=== PATIENT | male | born 1945 | race Caucasian/White ===

== ENCOUNTER 2023-05-19 10:58 | Outpatient (CLI) | payer OTHER, SELFPAY ==
--- NOTE | 2023-05-19 11:15 | CRLHL7_ITS ---
For Patients: As a result of the Century Cures Act, medical imaging exams and procedure reports are released immediately into your electronic medical record. You may view this report before your referring provider. If you have questions, please contact your health care provider. INDICATION: IDIOPATHIC PULMONARY FIBROSIS, Dyspnea TECHNIQUE: Chest 2 views COMPARISON: CT chest 03/16/2011, 06/19/2021 chest x-ray 03/16/2011 FINDINGS: Thickening of the interlobular septa in a peripheral distribution bilaterally, similar to the most recent CT chest. No pleural effusion or acute infiltrate. No compression fracture. Incidental gas bubble within stomach noted. IMPRESSION: Pulmonary fibrosis, similar to the 06/19/2021 CT scan. Dictated by Dragan Dye MD @ 05/19/2023 11:42:01 AM (Electronically Signed)
--- NOTE | 2023-05-19 11:15 | CRLHL7_ITS ---
For Patients: As a result of the Century Cures Act, medical imaging exams and procedure reports are released immediately into your electronic medical record. You may view this report before your referring provider. If you have questions, please contact your health care provider. Indication: Pulmonary fibrosis, dyspnea Technique: Fluoroscopic sniff test. Fluoroscopic time 21 seconds. IMPRESSION: Normal motion of the hemidiaphragms. No paradoxical movement. The hemidiaphragm movement is somewhat sluggish related to the underlying pulmonary fibrosis. Incidental gastric bubble noted near the GE junction. Dictated by Dragan Dye MD @ 05/19/2023 11:45:57 AM (Electronically Signed)
== END 2023-05-19 10:59 | disposition home or self-care (01) ==
LOC: RAD 11:03
PROVIDERS: PCP Surgery; Visit Provider Internal Medicine Pulmonary Disease
DX: J84.112 Idiopathic pulmonary fibrosis (principal); R94.2 Abnormal results of pulmonary function studies; R06.00 Dyspnea, unspecified
CPT/HCPCS: 71046; 76000

== ENCOUNTER 2024-04-20 13:12 | Outpatient (REF) | payer OTHER, SELFPAY ==
[2024-04-20 13:52] LABS: Albumin* 4.5 g/dL (3.3-5.0)
[2024-04-20 13:55] LABS: Alanine Aminotransferase* 21 U/L (4-50); Alkaline Phosphatase* 53 U/L (40-150); Aspartate Amino Transferase* 28 U/L (12-35); Bilirubin Direct* 0.4 mg/dL (0.0-0.5); Bilirubin Total* 0.9 mg/dL (0.1-1.5); Total Protein* 7.3 g/dL (6.0-8.3)
== END 2024-04-20 13:13 | disposition home or self-care (01) ==
LOC: NPINS 13:12
PROVIDERS: PCP Surgery; Visit Provider Internal Medicine
DX: J84.10 Pulmonary fibrosis, unspecified (principal); J84.112 Idiopathic pulmonary fibrosis
CPT/HCPCS: 80076

== ENCOUNTER 2024-11-14 19:19 | Emergency (ER) | payer OTHER, SELFPAY ==
--- OUTSIDE RECORDS SUMMARY | 2024-11-14 19:22 | XMS_ITS | Continuity of Care Document ---
Author Organization [facility] Address [address] [place] [address] Phone Care Team Providers Care Civil Litigation Attorney Name Role Phone Sweta Hdz MD Unavailable Unavailable Allergies, Adverse Reactions, Alerts Substance Reaction Status Criticality No Known Allergies Active No Inform ation Medications Medication Instructions Dosage Effective Dates (start - stop) Status Comments Eliquis 5 mg tablet take 1 tablet by ora l route 2 times every day 5 MG - Active atorvastatin 10 mg tablet take 1 tablet by oral route every day 10 MG - Active tamsulosin 0.4 mg capsule take 1 capsule by oral route every day 1/2 hour following the same meal each day 0.4 MG - Active omeprazole 20 mg capsule,delayed release take 1 capsule by oral route every day before a meal 20 MG - Active tadalafil 5 mg tablet 1 every 3 weeks - Ac tive Procedures Procedure Date Office/Outpatient Visit, [facility] Routine Venipuncture Specimen Handling Assay Of Ck (Cpk) Dna Antibody, Single Strand Dna Antibody, [place] Nuclear Antigen Antibodies Antinuclear Antibodies Advance Directives Directive Yes / No Effective Date File Name No Information Encounters Encounter Description Practice Location Reason(s) For Visit Diagnoses Date Provider Providers Copied on Encounter [facility], [address], [place], [address], tel:[phone] [facility] , No Information [address] [facility] [address], [place], [address], [place]. tel:[phone] Office/Outpa tient Visit, [facility], [address], [place], [address], [place] tel:[phone] [facility] , Abnormal Lab Study (chief complaint) Raised antibody titerIdiopat hic pulmonary fibrosis 1 [address] [facility] [address], [place], [address], [place]. tel:[phone] Consulting Provider: Penny Luu, [facility] [address], [place], [address]. tel:[phone] ng Provider: Sweta Jones, [facility] [address], [place], [address]. tel:[phone] [facility], [address], [place], [address], [place] tel:[phone] [facility] , No Information 1 [address] [facility] [address], [place], [address], [place]. tel:[phone] Family History Family Member Type Diagnosis Age At Onset Brother Problem Factor V Leiden deficiency Son Problem Factor V Leiden deficiency Immunizations Vaccine Date Status Comments COVID-19 Moderna administered Source: Oth er Provider COVID-19 Moderna administered Source: Ot er Provider Payers Payer name Insurance type Covered green party ID Authoriza tion(s) [employer] CI [id number] Social History Type Description Quantity Date Captured Comments Sex Male Smoking Status No Information Chief Complaint And Reason For Visit No Information Reason For Referral Reason For Referral No Information History Of Present Illness Encounter Date Complaint History Of Prese nt Illness Abnormal Lab Study Functional Status Date Functional Assessmen t No Information Instructions Date Instruction Additional Infor mation No Information Assessments Type Assessment Date No Information Patient Care Teams Name Effective Dates (start - stop) Status Members No Information
[2024-11-14 19:29] VITALS: BP 148/64; PULSE 96; RESP 20; TEMP 36.8; O2SAT 98; BMI 29.0
--- NOTE | 2024-11-14 19:48 | CRLHL7_ITS ---
For Patients: As a result of the Century Cures Act, medical imaging exams and procedure reports are released immediately into your electronic medical record. You may view this report before your referring provider. If you have questions, please contact your health care provider. INDICATION: Trauma. TECHNIQUE: CT cervical spine without contrast. COMPARISON: None. FINDINGS: No acute fracture or suspicious osseous lesion. The cervical vertebral bodies maintain their normal heights with reversal of the cervical lordosis. There is mild anterolisthesis at C3-C4 and C4-C5 and mild retrolisthesis at C5-C6. Multilevel spondylosis is noted with endplate osteophyte formation most prominent at C4-C6. Multilevel degenerative disc disease with multifocal disc space height loss and multilevel facet arthropathy. Paraspinal soft tissues demonstrate no acute abnormality. There is a nonspecific superficial soft tissue presumed cystic lesion at the posterior midline upper neck at the level of C2 measuring up to 1.3 cm. IMPRESSION: 1. No acute cervical spine abnormality. 2. Benign-appearing superficial soft tissue nodule at the midline upper neck posteriorly at the level of C2 measuring up to 1.3 cm. Clinical correlation recommended. Please note that all CT scans at this facility use dose modulation, iterative reconstruction, and/or weight-based dosing when appropriate to reduce radiation dose to as low as reasonably achievable. Dictated by Tony Correa MD @ 11/14/2024 9:28:53 PM (Electronically Signed)
--- NOTE | 2024-11-14 19:48 | CRLHL7_ITS ---
For Patients: As a result of the Century Cures Act, medical imaging exams and procedure reports are released immediately into your electronic medical record. You may view this report before your referring provider. If you have questions, please contact your health care provider. INDICATION: Trauma. TECHNIQUE: CT chest without contrast. COMPARISON: CT chest 06/19/2021. FINDINGS: Lungs and pleura: Fibrotic changes grossly stable when compared to the previous exam. No focal consolidation. No pleural effusion or pneumothorax. No suspicious nodule or mass. Heart and vasculature: No cardiomegaly or pericardial effusion. No thoracic aortic aneurysm. Main pulmonary artery normal in caliber. Lymph nodes/mediastinum: No suspicious lymphadenopathy. Chest wall: No suspicious chest wall mass or fluid collection. Upper abdomen: No acute abnormality. Bones: No acute abnormality. IMPRESSION: No acute intrathoracic or osseous abnormality. No significant change when compared to previous CT of the chest. Please note that all CT scans at this facility use dose modulation, iterative reconstruction, and/or weight-based dosing when appropriate to reduce radiation dose to as low as reasonably achievable. Dictated by Tony Correa MD @ 11/14/2024 9:33:56 PM (Electronically Signed)
--- NOTE | 2024-11-14 19:55 | ED.FALL ---
HPI - Fall General Date Seen: 11/14/24 Chief Complaint: Fall/Minor Trauma Stated Complaint: fell hit head on corner and sliced head Time Seen by Provider: 11/14/24 19:39 Source: patient Mode of arrival: ambulatory Limitations: no limitations History of Present Illness HPI Narrative: Patient is a 79-year-old male presenting to the emergency department after a fall. He is on Eliquis. He states he tripped and fell hitting his head against a staircase. Hit the top of his head right at the border were his scalp and forehead are. Denies any of the injuries. Denies fevers, chills, chest pain, shortness of breath, headache, lightheadedness, dizziness, weakness, numbness, vision changes, hearing changes. States he only came in because of the blood thinners. Denies any other concerns at this time. States he feels perfectly normal. Related Data Home Medications ?Medication ?Instructions ?Recorded ?Confirmed apixaban 5 mg tablet (Eliquis) 5 mg PO BID 11/14/24 11/14/24 atorvastatin 20 mg tablet 20 mg PO DAILY 11/14/24 11/14/24 atorvastatin 40 mg tablet 40 mg PO DAILY 11/14/24 11/14/24 hydrochlorothiazide 12.5 mg tablet 12.5 mg PO DAILY 11/14/24 11/14/24 losartan 50 mg tablet 50 mg PO BID 11/14/24 11/14/24 nintedanib 150 mg capsule (Ofev) PO 11/14/24 scopolamine base 1 mg over 3 days 1 patch topical Q3D PRN vertigo 11/14/24 11/14/24 transdermal patch tamsulosin 0.4 mg capsule mg PO DAILY 11/14/24 valacyclovir 1 gram tablet 1,000 mg PO BID 11/14/24 11/14/24 Allergies Allergy/AdvReac Type Severity Reaction Status Date / Time mold Allergy Verified 11/14/24 19:26 venom-wasp Allergy Verified 11/14/24 19:26 Review of Systems Status of ROS: Reports: 10 or more systems reviewed and unremarkable except as noted in History and below [facility] Social History Smoking Status: Never smoker Do you use any of these nicotine containing products: None Second hand tobacco smoke exposure: No How often do you have a drink containing alcohol: never How often do you have six or more drinks on one occasion: Never AUDIT-C Alcohol total score: 0 Non-prescribed substance use: denies use service: No Exam Narrative: Exam Narrative: Const: Well-nourished, Well-developed, in no distress Eyes: PERRL, no conjunctival injection, and symmetrical lids HENT: Atraumatic external nose and ears. Moist mucous membranes. 2 cm laceration to top of his forehead just into the hairline Neck: Symmetric, trachea midline, No thyromegaly. No midline cervical tenderness CVS: RRR, No murmurs or gallops. Peripheral pulses 2+ and equal in all extremities RESP: Unlabored respiratory effort. Clear to auscultation bilaterally. GI: Nontender/Nondistended, No rebound or guarding. MSK:Extremities w/o deformity, Normal Active ROM Skin: Warm, Dry. No rashes or lesions. Neuro: Normal Muscle tone, No focal neurological deficits. Psych: Awake, Alert, & Oriented x3. Appropriate mood and affect. Const: Vital Signs, click to edit/add: Vital Signs - 24 hr 11/14/24 19:29 Temperature 98.2 F Pulse Rate [Pulse Oximeter] 96 Respiratory Rate 20 Blood Pressure [Ri ght Upper Arm] 148/64 H Pulse Oximetry 98 Oxygen Delivery Me thod Room Air Course Vital Signs Vital signs: Initial Vital Signs Temperature 98.2 F 11/14/24 19:29 Temperature Source Temporal Artery Scan 11/14/24 19:29 Pulse Rate 96 11/14/24 19:29 Respiratory Rate 20 11/14/24 19:29 Blood Pressure 148/64 H 11/14/24 19:29 Blood Pressure Mean 92 11/14/24 19:29 Pulse Oximetry 98 11/14/24 19:29 Oxygen Delivery Method Room Air 11/14/24 19:29 Vital Signs Temperature 98.2 F 11/14/24 19:29 Pulse Rate 96 11/14/24 19:29 Respiratory Rate 20 11/14/24 19:29 Blood Pressure 148/64 H 11/14/24 19:29 Pulse Oximetry 98 11/14/24 19:29 Oxygen Delivery Method Room Air 11/14/24 19:29 Temperature 98.2 F 11/14/24 19:29 Pulse Rate 96 11/14/24 19:29 Respiratory Rate 20 11/14/24 19:29 Blood Pressure 148/64 H 11/14/24 19:29 Pulse Oximetry 98 11/14/24 19:29 Oxygen Delivery Method Room Air 11/14/24 19:29 MDM - Fall MDM Narrative Medical decision making narrative: Patient is a 79-year-old male presenting to the emergency department after a fall. Did not lose consciousness. Is having no neurological symptoms at this time. Will do a CT scan of his head and cervical spine. Do not believe any other imaging is necessary. Of note a chest CT was ordered by accident. This chest CT was not needed. CT scans all returned the reviewed by myself and the radiologist showing no acute concerning abnormalities. He is feeling well at this time. The laceration to his forehead was closed using Dermabond. Was about 2 cm in length. Antibiotics are not necessary. He will be discharged Discharge Plan Discharge Clinical Impression: Laceration Patient Disposition: Home, Self-Care Condition: Stable Instructions: Head Injury (ED) Additional Instructions: The Dermabond should fall out in the next week or 2. Do not rub the area because the Dermabond will fall too soon then and the wound would not close appropriately. Topical antibiotics will dissolve the glue too fast. Do not use topical antibiotic. Prescriptions: No Action losartan 50 mg tablet 50 mg PO BID atorvastatin 40 mg tablet 40 mg PO DAILY atorvastatin 20 mg tablet 20 mg PO DAILY valacyclovir 1 gram tablet 1,000 mg PO BID tamsulosin 0.4 mg capsule PO DAILY scopolamine base 1 mg over 3 days patch 3 day 1 patch topical Q3D PRN (Reason: vertigo) hydrochlorothiazide 12.5 mg tablet 12.5 mg PO DAILY Eliquis 5 mg tablet 5 mg PO BID Ofev 150 mg capsule PO Follow Up/Referrals: Jose J Holland MD [Primary Care Provider] - [facility]one [facility] Procedures Laceration Forehead: Name of person performing procedure: Jose J Taveras Site: scalp (Right at the frontal hairline) Size (cm): 2 Description: linear Depth: simple, single layer Pre-repair: wound explored, irrigated extensively and deep structures intact Skin layer closed with: other (Dermabond)
--- OUTSIDE RECORDS SUMMARY | 2024-11-14 20:33 | XMS_ITS | Continuity of Care Document ---
Author Organization [facility] Address [address] [place] [address] Phone Care Team Providers Care Seam Checker Name Role Phone Sweta Hdz MD Unavailable [...] Ac tive Procedures Procedure Date Office/Outpatient Visit, [facility] Routine Venipuncture Specimen Handling Assay Of Ck (Cpk) Dna Antibody, Single Strand Dna Antibody, [place] Nuclear Antigen Antibodies Antinuclear Antibodies Advance Directives Directive Yes / No Effective Date File Name No Information Encounters Encounter Description Practice Location Reason(s) For Visit Diagnoses Date Provider Providers Copied on Encounter [facility], [address], [place], [address], tel:[phone] [facility] , No Information 1 [address] [facility] [address], [place], [address], [place]. tel:[phone] Office/Outpa tient Visit, [facility], [address], [place], [address], [place] tel:[phone] [facility] , Abnormal Lab Study (chief complaint) Raised antibody titerIdiopat hic pulmonary fibrosis 1 [address] [facility] [address], [place], [address], [place]. tel:[phone] Consulting Provider: Penny Luu, [facility] [address], [place], [address]. tel:[phone] ng Provider: Sweta Jones, [facility] [address], [place], [address]. tel:[phone] [facility], [address], [place], [address], [place] tel:[phone] [facility] , No Information 1 [address] [facility] [address], [place], [address], [place]. tel:[phone] Family History Family Member Type Diagnosis Age At Onset Brother Problem Factor V Leiden deficiency Son Problem Factor V Leiden deficiency Immunizations Vaccine Date Status Comments COVID-19 Moderna administered Source: Oth er Provider COVID-19 Moderna administered Source: Ot er Provider Payers Payer name Insurance type Covered libertarian ID Authoriza tion(s) [employer] CI [id number] Social History Type Description Quantity Date Captured [...]
--- OUTSIDE RECORDS SUMMARY | 2024-11-14 20:33 | XMS_ITS | Clinical Summary ---
Author Organization [facility] Address [address] [place] [address] Care Team Providers [facility] Name Role Phone Jose J Holland MD Primary Care Provider [phone] Allergies Active Allergy Reactions Criticality Noted Date Comments Mold *Unknown,Runny Nose 01/07/1980 respiratory Venom-Wasp Edema 06/30/2021 Medications loperamide (IMODIUM) 2 mg capsule TAKE 2 CAPSULES BY MOUTH AFTER 1ST LOOSE STOOL AND 1 CAPSULE AFTER EACH NEXT BOWEL MOVEMENT. DO NOT EXCEED 8 CAPSULES IN 24 HOURS 06/09/20 21 Active omeprazole 20 mg tabletIndications :Idiopathic fibrosing alveolitis, subacute form (HC) Take 1 Tablet (20 mg) by mouth once daily before a meal. 90 Tablet 3 08/10/19 23 Active tadalafiL (CIALIS) 10 mg tabletIndications :Erectile dysfunction of organic origin Take 1 Tablet (10 mg) by mouth once daily if needed (Erectile dysfunction ). Take 30 minutes before sexual activity. 10 Tablet 3 08/10/19 23 Active predniSONE (DELTASONE) 10 mg tabletIndications :IPF (idiopathic pulmonary fibrosis) (HC) Take 40mg (4 tabs) daily x2 days --> 30mg (3 tabs) daily x2 days --> 20mg (2 tabs) daily x2 days --> 10mg (1 tab) daily x2 days --> stop. 20 Tablet 3 04/23/20 24 Active hydroCHLOROthiazi de 12.5 mg tabletIndications :HTN (hypertension) Take 1 Tablet (12.5 mg) by mouth once daily. 90 Tablet 3 10/02/19 25 Active losartan (COZAAR) 50 mg tabletIndications :HTN (hypertension) Take 1 Tablet (50 mg) by mouth two times daily. 180 Tablet 10/02/19 25 Active scopolamine 1 mg over 3 days (Transderm-Scop) patchIndications: H/O motion sickness Apply 1 Patch on dry, clean, hairless skin every 72 hours if needed for Vertigo. prn 24 Each 10/02/19 25 Active tamsulosin 0.4 mg capsuleIndication s:Urinary urgency Take 1 Capsule (0.4 mg) by mouth once daily after a meal. 90 Capsule 10/02/19 25 Active valACYclovir (VALTREX) 1 gram tabletIndications :HSV infection Take 1 pill twice daily at the onset of a cold sore 30 Tablet 10/02/19 25 Active atorvastatin (LIPITOR) 40 mg tabletIndications :Hyperlipidemia, unspecified hyperlipidemia type Take 1 Tablet (40 mg) by mouth at bedtime. 90 Tablet 3 10/22/19 25 Active nintedanib (Ofev) 150 mg capIndications:IP F (idiopathic pulmonary fibrosis) (HC) Take 1 Capsule (150 mg) by mouth two times daily. 90 Capsule 10/24/19 25 Active Eliquis 5 mg tabletIndications :History of pulmonary embolus (PE) TAKE 1 TABLET(5 MG) BY MOUTH TWICE DAILY 180 Tablet 3 11/07/19 25 Active nintedanib (Ofev) 150 mg capIndications:IP F (idiopathic pulmonary fibrosis) (HC) Take 1 Capsule (150 mg) by mouth two times daily. 90 Capsule 3 04/23/20 24 025 Discontinued(R eorder (E-cancel not sent)) apixaban (Eliquis) 5 mg tabletIndications :History of pulmonary embolus (PE) Take 1 Tablet (5 mg) by mouth two times daily. 180 Tablet 3 10/02/19 25 025 Discontinued atorvastatin (LIPITOR) 20 mg tabletIndications :Hyperlipidemia, unspecified hyperlipidemia type Take 1 Tablet (20 mg) by mouth at bedtime. 90 Tablet 3 10/02/19 25 025 Discontinued(* Medication adjustment) nintedanib (Ofev) 150 mg capIndications:IP F (idiopathic pulmonary fibrosis) (HC) Take 1 Capsule (150 mg) by mouth two times daily. 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 Hyperlipidemia 06/03/2009 Rhinitis, allergic 06/03/2009 Resolved Problems Problem Noted Date Diagnosed Date Resolved Date Disease due to severe acute respiratory syndrome coronavirus 2 (SARS-CoV-2) 05/27/20212 12/2024 Encounters Date Type Department Care Team Description 11/03/2024 Refill [facility] [address] [facility] [place] [address] Jose J Holland MD Refill Request (Eliquis) 11/01/2024 Orders Only [facility] Scanner 1 scan: (1-Ord) INCOMING RECORDS-LABS, [facility], 11/01/2024 10/23/2024 Telephone [facility] [place] [address] [place] [phone] Penny Luu MD Medication Management (nintedanib (Ofev) 150 mg cap) 10/22/2024 10:45 AM CDT Office Visit [facility] [place] [address] [place] [address] Penny Luu MD Follow Up (Pulmonary IPF/) 10/22/2024 Travel 10/17/2024 Travel 10/16/2024 Travel 10/11/2024 Travel 10/05/2024 Telephone [facility] [place] [address] [place] [phone] Penny Luu MD Prior Authorization (nintedanib (Ofev) 150 mg cap Approved September 10, 2024 to October 08, 2025) 10/02/2024 1:10 PM DIABETES MANAGER Office Visit [facility] [address] [facility] [address] Jose J Holland MD Medicare ANNUAL (subsequent) Visit (78 yr old male) 10/02/2024 Travel 09/29/2024 Travel 09/29/2024 Refill [facility] [address] [place] [address] Jose J Holland MD Refill Request (Tamsulosin) from Last 3 Months Immunizations Immunization Administration Dates Next Due COVID-19 VACCINE SPIKEVAX (M ODERNA 50MCG/0.5ML) 12YO+ PFS 05/04/2023 COVID-19 vaccine (Moderna 100mcg/0.5mL) PF, MDV 10/17/2020,09/19/2020 COVID-19 vaccine (Moderna 50 mcg/0.5mL) 12YO+ BIVALENT PF, MDV 04/28/2022 COVID-19 vaccine (Pfizer-Bio NTech 30mcg/0.3mL) PF, MDV 08/21/2021 Influenza A (H1N1), Inactivated 07/24/2009 Influenza, High-dose Inactivated 024,05/06/2021,04/29/2018,05/06 Influenza, High-dose Quadriv alent Inactivated 05/04/2023 Influenza, IIV3 (Age 6-35 mos) 08/11/2012,2008 Influenza, IIV3 (Age >=3 years) 05/15/2013 Influenza, IIV4 05/07/2020,06/03/2014 Influenza, IIV4 (=>6mos) MDV 05/17/2019 Influenza, Inactivated AIIV4 (Age 65+ Years) Preserv Free 04/28/2022,05/06/2021 Influenza, Whole Virus 05/12/2015 Pneumococcal Poly,23-Valent (Pneumovax) 09/28/2013 Pneumococcal conj 13-Valent (Prevnar 13) 07/18/2017 RSV, Bivalent Vaccine Recons tituted (Abrysvo 120MCG/0.5mL) 06/28/2023 Tdap 11/15/2023,07/26/2013 Yellow Fever 02/26/2004 Zoster (Shingrix-RZV, recombinant) 06/05/2019, Zoster (Zostavax-ZVL, live) 06/03/2009 Family History Medical History Relation Name Comments Pulmonary embolism Brother 1 Pulmonary embolism Brother 2 Pulmonary embolism Father Relation Name Status Comments Brother 1 Brother 2 Father Social History Tobacco Use Types Packs/Day Years Used Date Smoking Tobacco: Never Passive Smoke Exposure: Never Smokeless Tobacco: Never Tobacco Cessation:Counseling Given: Not Answered Alcohol Use Standard Drinks/Week Comments Yes 0 (1 standard drink = 0.6 oz pur e alcohol) 1 beer per day PHQ-2 Answer Date Recorded PHQ-2 TOTAL SCORE 0 10/02/2024 Social Connections Answer Date Recorded Do you often feel lonely or isolated from those around you? 0 09/29/2024 Financial Resource Strain Answer Date R ecorded Difficulty of Paying Living Expenses 3 09/29/2024 Difficulty of Paying Living Expenses Not on file 09/29/2024 Food Insecurity Answer Date Recorded Do you worry your food will run out before you are able to buy more? 1 09/29/2024 Transportation Needs Answer Date Record ed Does lack of transportation keep you from medica l appointments? 1 09/29/2024 Does lack of transportation keep you from work, meetings or getting things that you need? 1 09/29/2024 Housing Stability Answer Date Recorded What is your housing situation today? 1 09/29/2024 Utilities Answer Date Recorded Do you have trouble paying f or utilities (for example, heat, electricity, water, phone)? 1 09/29/2024 Sex and Gender Information Value Date Recorded Sex Assigned at Male 09/02/2021 4:28 PM DIABETES MANAGER Legal Sex Male 5:27 AM DIABETES MANAGER Gender Identity Male 09/02/2021 4:28 PM DIABETES MANAGER Sexual Orientation Straight 09/02/2021 4: 28 PM DIABETES MANAGER Obstetrics History Last Filed Vital Signs Vital Sign Reading Time Taken Comments Blood Pressure 122/52 10/22/2024 10:37 AM CDT Pulse 72 10/22/2024 10:37 AM CDT Temperature - - Respiratory Rate - - Oxygen Saturation 98% 10/22/2024 10:37 AM CDT Inhaled Oxygen Concentration - - Weight 97.5 kg (215 lb) 10/22/2024 10:37 AM CDT Height 189.2 cm (6' 2.5) 10/22/2024 10:37 AM CD T Body Mass Index 27.24 10/22/2024 10:37 AM CDT Plan of Treatment Upcoming Encounters Date Type Department Care Team (Late st Contact Info) Description 04/29/2025 11:05 AM CDT Office Visit [facility] [place] [address] [place] [phone] Penny Luu MD [address] [place] [phone] Health Maintenance Due Date Last Done Comments COVID-19 vaccine series (8 - Mixed Product risk season) 2024 05/01/2024, 05/04/2023, 04/28/2022, Additional history exists Medicare Wellness for age 65+ 10/03/2025, 09/16/2023, 08/10/2022, Additional history exists Depression screening for age 12+ 10/05/2025 10/05/2024, 10/02/2024, 09/16/2023, Additional history exists BMI (ht and wt on same day) for age 18+ 10/22/2025 10/22/2024, 10/02/2024, 04/23/2024, Additional history exists Tetanus booster 11/14/2033 11/15/2023, 07/26/2013 Pneumococcal series for age 50+ Completed 7, 09/28/2013 Zoster (shingles) series for age 50+ Completed 06/05/2019, 02/08/2019, 06/03/2009 Hepatitis C screening for ag e 18-79 Completed 09/03/2021 RSV vaccine for adults or Completed 06/28/2023 Tdap Completed 11/15/2023, 07/26/2013 Influenza Vaccine Completed 05/01/2024, , 05/06/2021, Additional history exists Procedures Procedure Name Priority Date/Time Associated Diagnosis Comments SCAN CORRESP-LABORATORY RESULTS 11/01/2024 12:00 AM CDT SCAN-PULMONARY FUNCTION TEST 10/22/2024 12:00 AM CDT HEPATIC FUNCTION PANEL Routine 10/16/2024 10:02 AM CDT IPF (idiopathic pulmonary fibrosis) (HC) LIPID PANEL Routine 10/16/2024 10:02 AM CDT Hyperlipidemia, unspecified hyperlipidemia type BASIC METABOLIC PANEL Routine 10/16/2024 10:02 AM CDT HTN (hypertension) ANTI HCV Routine 09/03/2021 11:36 AM DIABETES MANAGER Need for hepatitis C screening test from Last 3 Months or Most Recently Relevant to Health Maintenance Results * SCAN CORRESP-LABORATORY RESULTS (11/01/2024 12:00 AM CDT) us Scanner OTHER Final Result * SCAN-PULMONARY FUNCTION TEST (10/22/2024 12:00 AM CDT) us Scanner OTHER Final Result * HEPATIC FUNCTION PANEL (10/16/2024 10:02 AM CDT) PROTEIN, TOTAL 7.2 6.1 - 8.1 g/dL [facility] ALBUMIN 4.4 3.6 - 5.1 g/dL [facility] GLOBULIN 2.8 1.9 - 3.7 g/dL (calc) [facility] ALBUMIN/GLOBULIN RATIO 1.6 1.0 - 2.5 (calc) [facility] BILIRUBIN, TOTAL 0.6 0.2 - 1.2 mg/dL [facility] BILIRUBIN, DIRECT 0.1 < OR = 0.2 mg/dL [facility] BILIRUBIN, INDIRECT 0.5 0.2 - 1.2 mg/dL (calc) [facility] ALKALINE PHOSPHATASE 47 35 - 144 U/L [facility] AST 17 10 - 35 U/L [facility] ALT 14 9 - 46 U/L [facility] Blood BLOOD SPECIMEN / Unknown 10/16/2024 10:02 AM CDT 10/16/2024 10:03 AM CDT Narrative [facility] - 10/17/2024 4:31 AM CDT FASTING:NO FASTING: NO us Penny Luu MD CHEMISTRY Final Resul t Performing Organization Address City/[facility]/ZIP Co de Phone Number [facility] [address] [place] [address], [facility] [address] [place] [address] * (ABNORMAL) LIPID PANEL (10/16/2024 10:02 AM CDT) CHOLESTEROL, TOTAL 194 <200 mg/dL [facility] HDL CHOLESTEROL 54 > OR = 40 mg/dL [facility] TRIGLYCERIDES 157(H) <150 mg/dL [facility] LDL-CHOLESTEROL 113(H) mg/dL (calc) [facility] Comment: Reference range: <100 Desirable range <100 mg/dL for primary prevention; <70 mg/dL for patients with CHD or diabetic patients with > or = 2 CHD risk factors. LDL-C is now calculated using the Paulo-Landeros calculation, which is a validated novel method providing better accuracy than the Friedewald equation in the estimation of LDL-C. Paulo SS et al. PADMINI. 2013;310(19): 0247-4840 (http://education.[employer]/faq/POH030) CHOL/HDLC RATIO 3.6 <5.0 (calc) [facility] NON HDL CHOLESTEROL 140(H) <130 mg/dL (calc) [facility] Comment: For patients with diabetes plus 1 major ASCVD risk factor, treating to a non-HDL-C goal of <100 mg/dL (LDL-C of <70 mg/dL) is considered a therapeutic option. Blood BLOOD SPECIMEN / Unknown 10/16/2024 10:02 AM CDT 10/16/2024 10:03 AM CDT Narrative [facility] - 10/17/2024 4:31 AM CDT FASTING:NO FASTING: NO us Jose J Holland MD CHEMISTRY Final Resu lt [facility] [address] [facility] [place] [address], [place] [phone] [facility] [address] [facility] [place] [address] * BASIC METABOLIC PANEL (10/16/2024 10:02 AM CDT) GLUCOSE 82 65 - 139 mg/dL [facility] Comment: Non-fasting reference interval UREA NITROGEN (BUN) 23 7 - 25 mg/dL [facility] CREATININE 1.15 0.70 - 1.28 mg/dL [facility] EGFR 65 > OR = 60 mL/min/1. 73m2 [facility] BUN/CREATININE RATIO SEE NOTE: 6 - 22 (calc) [facility] Comment: Not Reported: BUN and Creatinine are within reference range. SODIUM 140 135 - 146 mmol/L [facility] POTASSIUM 3.7 3.5 - 5.3 mmol/L [facility] CHLORIDE 103 98 - 110 mmol/L [facility] CARBON DIOXIDE 30 20 - 32 mmol/L [facility] ELECTROLYTE BALANCE 7 7 - 17 mmol/L (calc) [facility] CALCIUM 9.4 8.6 - 10.3 mg/dL [facility] Blood BLOOD SPECIMEN / Unknown 10/16/2024 10:02 AM CDT 10/16/2024 10:03 AM CDT Narrative [facility] - 10/17/2024 4:31 AM CDT FASTING:NO FASTING: NO us Jose J Holland MD CHEMISTRY Final Resu lt [facility] [address] [place] [address], [place] [phone] [facility] [address] [facility] [place] [address] * ANTI HCV (09/03/2021 11:36 AM DIABETES MANAGER) HEPATITIS C ANTIBODY Non-React gaurav Non-React gaurav 09/03/2021 5:31 PM DIABETES MANAGER [facility] Comment:Antibodies to HCV no t detected; does not exclude the possibility of exposure to HCV. Blood BLOOD SPECIMEN / Unknown Venipuncture / Unknown 09/03/2021 11:36 AM DIABETES MANAGER 09/03/2021 11:37 AM DIABETES MANAGER us Jose J Holland MD SEND OUTS Final Resu lt [facility] [address] [place] [address], [place] from Last 3 Months or Most Recently Relevant to Health Maintenance Insurance MEDICARE ADVANTAGE MR Advance Directives Documents on File Type Date Recorded Patient Channel Specialist Expl anation Healthcare Directive 09/11/2004 005 Care Teams Home Health Lvn Relationship Specialty Start Date End Date Jose J Holland MD [address] [place] [address] PCP - General Family Practice 09/03/21
--- NOTE | 2024-11-14 20:58 | CRLHL7_ITS ---
For Patients: As a result of the Century Cures Act, medical imaging exams and procedure reports are released immediately into your electronic medical record. You may view this report before your referring provider. If you have questions, please contact your health care provider. INDICATION: Trauma. TECHNIQUE: CT head without contrast. COMPARISON: None. FINDINGS: No acute intracranial hemorrhage. No CT evidence of acute territorial infarct. No hydrocephalus or midline shift. Normal cerebral parenchymal volume. Mild chronic microvascular ischemic changes. Opacification of the left maxillary sinus. The remainder of the visualized paranasal sinuses are well ventilated. Mastoid air cells are well aerated. No acute calvarial fracture. IMPRESSION: No acute intracranial abnormality. Please note that all CT scans at this facility use dose modulation, iterative reconstruction, and/or weight-based dosing when appropriate to reduce radiation dose to as low as reasonably achievable. Dictated by Tony Correa MD @ 11/14/2024 9:24:33 PM (Electronically Signed)
== END 2024-11-14 21:54 | disposition home or self-care (01) ==
PROVIDERS: Emergency Provider Student in an Organized Health Care Education/Training Program; PCP Surgery
DX: S01.01XA Laceration without foreign body of scalp, initial encounter (principal); W18.00XA Striking against unspecified object with subsequent fall, initial encounter
CPT/HCPCS: 12001; 70450; 71250; 72125; 99283